=== PATIENT | male | born 1985 | race Caucasian/White ===

== ENCOUNTER 2016-10-04 10:30 | Emergency (ER) | payer OTHER ==
[2016-10-04 11:26] VITALS: BP 126/79
== END 2016-10-04 17:56 ==
LOC: ED 10:30
DX: Z53.21 Procedure and treatment not carried out due to patient leaving prior to being seen by health care provider (principal)

== ENCOUNTER 2017-05-16 11:44 | Emergency (ER) | payer SELFPAY ==
[2017-05-16 11:54] VITALS: BP 129/86
--- NOTE | 2017-05-16 13:29 | Emergency Department Report ---
- General Chief Complaint: Upper Respiratory Infection Stated Complaint: ALLERGIES Time Seen by Provider: 05/16/17 13:16 Source: patient Mode of arrival: Ambulatory Limitations: No Limitations - History of Present Illness Initial Comments: 31-year-old male with past medical history headaches presents to the hospital complaining of allergy symptoms and diarrhea. On encounter is currently high. Patient's had an itchy scratchy throat, nasal congestion, postnasal drip, and sneezing episodes. Taking Claritin without improvement. Patient had diarrhea for 2 weeks secondary to food poisoning. Symptoms improved but reoccurred one week ago. He's having about 10-15 loose stools per day. No blood, mucus, recent travel, sick contacts reported. Patient reports that he "felt hot" 2 days ago but did not check his temperature to confirm fever. Abdominal cramping intermittently and it occurs prior to bowel movements only. - Related Data Previous Rx's Medication Instructions Recorded Last Taken Type Methocarbamol [Robaxin] 750 mg PO Q8H PRN #21 tablet 03/04/14 Unknown Rx traMADol [Ultram 50 MG tab] 50 mg PO Q6HR PRN #30 tablet 03/04/14 Unknown Rx Ciprofloxacin HCl [Ciprofloxacin 500 mg PO Q12H #10 tab 05/16/17 Unknown Rx TAB] Allergies Allergy/AdvReac Type Severity Reaction Status Date / Time No Known Allergies Allergy Unverified 06/14/15 08:36 ED Review of Systems ROS: Stated complaint: ALLERGIES Other details as noted in HPI Comment: All other systems reviewed and negative ED Past Medical Hx - Past Medical History Hx Headaches / Migraines: Yes - Surgical History Past Surgical History?: No - Social History Smoking Status: Never Smoker Substance Use Type: None - Medications Home Medications: Home Medications Medication Instructions Recorded Confirmed Last Taken Type Methocarbamol [Robaxin] 750 mg PO Q8H PRN #21 tablet 03/04/14 Unknown Rx traMADol [Ultram 50 MG tab] 50 mg PO Q6HR PRN #30 tablet 03/04/14 Unknown Rx Ciprofloxacin HCl [Ciprofloxacin 500 mg PO Q12H #10 tab 05/16/17 Unknown Rx TAB] ED Physical Exam - General Limitations: No Limitations - Other Other exam information: General: No limitations, patient is alert in no acute distress Head exam: Atraumatic, normocephalic Eyes exam: Normal appearance ENT: Moist mucous membrane, nasal congestion Neck exam: Normal inspection, full range of motion, no meningismus nontender Respiratory exam: Clear to auscultation bilateral, no wheezes, rales, crackles Cardiovascular: Normal rate and rhythm, normal heart sounds Abdomen: Soft, nondistended, and nontender, with normal bowel sounds, no rebound, or guarding Extremity: Full range of motion normal inspection no deformity Back: Normal Inspection, full range of motion, no tenderness Neurologic: Alert, oriented x3, cranial nerves intact, no motor or sensory deficit Psychiatric: normal affect, normal mood Skin: Warm, dry, intact ED Course Vital Signs 05/16/17 11:50 Temperature 98.5 F Pulse Rate 87 Respiratory 16 Rate Blood Pressure 129/86 O2 Sat by Pulse 99 Oximetry ED Medical Decision Making - Medical Decision Making patient is afebrile and nontoxic without abdominal tenderness. Given recurrent diarrhea patient will be prescribed Cipro for 5 days Encouraged to try other [id number] allergy medication including those that contain decongestants Follow-up commended - Differential Diagnosis season allergies, URI, diarrhea, infectious diarrhea, colitis Critical Care Time: No Critical care attestation.: If time is entered above; I have spent that time in minutes in the direct care of this critically ill patient, excluding procedure time. ED Disposition Clinical Impression: Seasonal allergies, Acute diarrhea Disposition: - TO HOME OR SELFCARE Is pt being admited?: No Does the pt Need Aspirin: No Condition: Stable Instructions: Acute Diarrhea (ED), Allergies (ED) Additional Instructions: Take [id number] medication for your allergy symptoms. Take the antibiotics as prescribed. Continue to drink plenty of fluids. Return if symptoms worsen as indicated by your discharge structures. Follow-up with you primary care doctor for further management. Prescriptions: Ciprofloxacin HCl [Ciprofloxacin TAB] 500 mg PO Q12H #10 tab Referrals: PRIMARY CARE [Primary Care Provider] - 3-5 Days [facility] [Provider Group] - 3-5 Days Time of Disposition: 13:30
== END 2017-05-16 13:35 | disposition home or self-care (01) ==
LOC: ED 11:44
DX: J30.2 Other seasonal allergic rhinitis (principal); G43.909 Migraine, unspecified, not intractable, without status migrainosus
CPT/HCPCS: 99282

== ENCOUNTER 2018-09-25 18:08 | Emergency (ER) | payer SELFPAY ==
[2018-09-25 18:18] VITALS: BP 112/82
--- NOTE | 2018-09-25 18:21 | Emergency Department Report ---
ED Back Pain/Injury HPI - General Chief Complaint: Back Pain/Injury Stated Complaint: LOWER BACK PAIN Time Seen by Provider: 09/25/18 18:17 Source: patient Limitations: No Limitations - History of Present Illness Initial Comments: Pt is a 32 yo male who presents to the ED with right sided lower back pain that began two days ago. he states he was lifting some heavy boxes at work and bending over frequently. he denies any fall or injury. He denies any numbness, weakness, or bowel/bladder incontinence. PMHx migraines. no allergies to meds. - Related Data Previous Rx's Medication Instructions Recorded Last Taken Type methOCARBAMOL [Robaxin] 750 mg PO Q8H PRN #21 tablet 03/04/14 Unknown Rx traMADol [Ultram 50 MG tab] 50 mg PO Q6HR PRN #30 tablet 03/04/14 Unknown Rx Ciprofloxacin HCl [Ciprofloxacin 500 mg PO Q12H #10 tab 05/16/17 Unknown Rx TAB] Cyclobenzaprine [Flexeril] 10 mg PO QHS PRN #10 tablet 09/25/18 Unknown Rx Naproxen [Naprosyn] 500 mg PO BID PRN #14 tablet 09/25/18 Unknown Rx Allergies Allergy/AdvReac Type Severity Reaction Status Date / Time No Known Allergies Allergy Verified 09/25/18 18:12 ED Review of Systems ROS: Stated complaint: LOWER BACK PAIN Other details as noted in HPI Comment: All other systems reviewed and negative ED Past Medical Hx - Past Medical History Hx Headaches / Migraines: Yes - Social History Smoking Status: Never Smoker Substance Use Type: None - Medications Home Medications: Home Medications Medication Instructions Recorded Confirmed Last Taken Type methOCARBAMOL [Robaxin] 750 mg PO Q8H PRN #21 tablet 03/04/14 Unknown Rx traMADol [Ultram 50 MG tab] 50 mg PO Q6HR PRN #30 tablet 03/04/14 Unknown Rx Ciprofloxacin HCl [Ciprofloxacin 500 mg PO Q12H #10 tab 05/16/17 Unknown Rx TAB] Cyclobenzaprine [Flexeril] 10 mg PO QHS PRN #10 tablet 09/25/18 Unknown Rx Naproxen [Naprosyn] 500 mg PO BID PRN #14 tablet 09/25/18 Unknown Rx ED Physical Exam - General Limitations: No Limitations General appearance: alert, in no apparent distress - Head Head exam: Present: atraumatic, normocephalic - Eye Eye exam: Present: normal appearance - ENT ENT exam: Present: mucous membranes moist - Neck Neck exam: Present: normal inspection, full ROM. Absent: tenderness - Respiratory Respiratory exam: Present: normal lung sounds bilaterally. Absent: respiratory distress, wheezes, rales, rhonchi, stridor, chest wall tenderness, accessory muscle use, decreased breath sounds, prolonged expiratory - Cardiovascular Cardiovascular Exam: Present: regular rate, normal rhythm, normal heart sounds. Absent: systolic murmur, diastolic murmur, rubs, gallop - Back Exam Back exam: Present: normal inspection, full ROM, paraspinal tenderness (right sided lumbar paraspinal muscular TTP, no midline C-spine, T-spine, or L-spine tenderness, no step offs, no deformities). Absent: vertebral tenderness - Neurological Exam Neurological exam: Present: alert, oriented X3, CN II-XII intact, normal gait. Absent: motor sensory deficit - Psychiatric Psychiatric exam: Present: normal affect, normal mood - Skin Skin exam: Present: warm, dry, intact ED Course Vital Signs 09/25/18 18:16 Temperature 98.8 F Pulse Rate 93 H Respiratory 18 Rate Blood Pressure 112/82 O2 Sat by Pulse 99 Oximetry ED Medical Decision Making - Medical Decision Making Pt is a 32 yo male who presents to the ED with right sided lower back pain that began two days ago. he states he was lifting some heavy boxes at work and bending over frequently. he denies any fall or injury. He denies any numbness, weakness, or bowel/bladder incontinence. PMHx migraines. no allergies to meds. vitals are normal. on exam: right sided lumbar paraspinal muscular TTP, no midline C-spine, T-spine, or L-spine tenderness, no step offs, no deformities, no focal neuro deficits. pt history and examination consistent with low back strain. pt prescription for anti-inflammatory and muscle relaxer. advised to please take medication as prescribed as needed. do not drive or operate heavy machinery while taking muscle relaxer. may use ice, heating pad, rest, epsom salt bath. follow up with a primary care doctor in the next 2-3 days. return to the emergency room for any new or worsening symptoms. Critical care attestation.: If time is entered above; I have spent that time in minutes in the direct care of this critically ill patient, excluding procedure time. ED Disposition Clinical Impression: Low back strain Qualifiers: Encounter type: initial encounter Qualified Code(s): S39.012A - Strain of muscle, fascia and tendon of lower back, initial encounter Disposition: TO HOME OR SELFCARE Is pt being admited?: No Does the pt Need Aspirin: No Condition: Stable Instructions: Muscle Strain (ED) Additional Instructions: please take medication as prescribed as needed. do not drive or operate heavy machinery while taking muscle relaxer. may use ice, heating pad, rest, epsom salt bath. follow up with a primary care doctor in the next 2-3 days. return to the emergency room for any new or worsening symptoms. Prescriptions: Cyclobenzaprine [Flexeril] 10 mg PO QHS PRN #10 tablet PRN Reason: Muscle Spasm Naproxen [Naprosyn] 500 mg PO BID PRN #14 tablet PRN Reason: pain Referrals: [facility] [Provider Group] - 2-3 Days [facility] [Outside] - 2-3 Days [facility] [Outside] - 2-3 Days Forms: Work/School Release Form(ED) Time of Disposition: 18:26 Print Language: THAI
== END 2018-09-25 18:54 | disposition home or self-care (01) ==
LOC: ED 18:08
DX: S39.012A Strain of muscle, fascia and tendon of lower back, initial encounter (principal); G43.909 Migraine, unspecified, not intractable, without status migrainosus; Z79.899 Other long term (current) drug therapy; X50.0XXA Overexertion from strenuous movement or load, initial encounter; Y93.89 Activity, other specified; Y92.89 Other specified places as the place of occurrence of the external cause; Y99.0 Civilian activity done for income or pay

== ENCOUNTER 2020-06-02 09:05 | Emergency (ER) | payer SELFPAY ==
--- NOTE | 2020-06-02 09:27 | Event Note ---
ED Screening Note Date of service: 06/02/20 Time: 09:26 ED Screening Note: Patient complains of epigastric/right upper quadrant pain x 3 days + Nausea/vomiting/diarrhea Denies hematemesis/coffee-ground emesis or hematochezia/melena No history of abdominal surgeries This initial assessment/diagnostic orders/clinical plan/treatment(s) is/are subject to change based on patients health status, clinical progression and re- assessment by fellow clinical providers in the ED. Further treatment and workup at subsequent clinical providers discretion. Patient/guardian urged not to elope from the ED as their condition may be serious if not clinically assessed and managed. Initial orders include: Lab
--- NOTE | 2020-06-02 10:08 | Ultrasound Report ---
ULTRASOUND ABDOMEN, LIMITED (RIGHT UPPER QUADRANT) INDICATION: acute pain. COMPARISON: None available. FINDINGS: Pancreas: Visualized portion shows no significant abnormality. Liver: Mild steatosis. Gallbladder: There is minimal sludge in the gallbladder. There is a 4 mm polyp. No gallstones are arielle ntified. Bile ducts: Normal. Common Bile Duct measures 3-4 mm. Free fluid: None. Additional Findings: None. IMPRESSION: 1. Mild steatosis. 2. Tiny polyp and minimal sludge in the gallbladder. Signer Name: Bar Carrasquillo MD Signed: 06/02/2020 10:03 AM Workstation Name: [id number]
[2020-06-02 10:31] LABS: Basophils % (Auto) 0.2 % (0.0-1.8); Eosinophils % (Auto) 0.1 % (0.0-4.3); Hematocrit 46.3 % (35.5-45.6); Hemoglobin 15.5 gm/dl (11.8-15.2); Lymphocytes # (Auto) 0.8 K/mm3 (1.2-5.4); Lymphocytes % (Auto) 8.3 % (13.4-35.0); Mean Corpuscular HGB Conc 34 % (32-34); Mean Corpuscular Volume 95 fl (84-94); Monocytes % (Auto) 9.5 % (0.0-7.3); Red Blood Count 4.88 M/mm3 (3.65-5.03); Red Cell Distribution Width 14.1 % (13.2-15.2)
[2020-06-02 10:32] LABS: Platelet Count 169 K/mm3 (140-440)
[2020-06-02 10:48] LABS: Alanine Aminotransferase 27 units/L (7-56); Albumin 4.6 g/dL (3.9-5); BUN/Creatinine Ratio 9; Blood Urea Nitrogen 11 mg/dL (9-20); Calcium 9.7 mg/dL (8.4-10.2); Hemolysis Index 7
[2020-06-02] MEDS ORDERED: ONDANSETRON 4 MG ODT TAB ONE (15:48)
[2020-06-02] MEDS ORDERED: ONDANSETRON 4 MG ODT TAB PO ONE (15:50)
[2020-06-02 18:29] LABS: Bilirubin,Urine SM (Negative); Blood,Urine SM (Negative); Color,Urine Amber (Yellow)
[2020-06-02 18:57] LABS: Ictotest,Urine Negative (Negative)
--- NOTE | 2020-06-02 20:04 | Emergency Department Report ---
ED Abdominal Pain HPI - General Chief Complaint: Abdominal Pain Stated Complaint: ABD PAIN PUI?: No Time Seen by Provider: 06/02/20 19:30 Source: patient, EMS Mode of arrival: Ambulatory Limitations: No Limitations - History of Present Illness Initial Comments: Patient is a 34-year-old male who presents emergency room with complaints of abdominal pain, nausea, vomiting, diarrhea, chills. Patient states his symptoms started 2 days ago. Patient dates symptoms are worsening. Patient states he believes that his symptoms were caused by eating bad food from [employer] on Sunday night. Patient states the abdominal pain is periumbilical and is worsening. Patient states the pain is a 6 out of 10. Patient states the pain is better with rest and worse with palpation and movement and vomiting. Patient denies blood in the vomitus. Patient denies blood in the stool. Patient states he is not been able to hold anything down for 2 days. Patient denies recent travel. Patient denies recent international travel. Patient denies exposure to the novel coronavirus. Patient denies sick contacts. Patient denies loss of smell. Patient denies cough. Patient denies coming in contact with anybody with symptoms of the novel coronavirus. MD Complaint: abdominal pain -: Sudden Location: periumbilical Radiation: none Migration to: no migration Severity scale (0 -10): 6 Quality: cramping Consistency: constant Improves With: rest Worsens With: eating, vomiting, movement Context: possible food poisoning Associated Symptoms: nausea, vomiting, diarrhea, chills. denies: fever, constipation, dysuria, hematemesis, hematochezia, melena, hematuria, syncope - Related Data Previous Rx's Medication Instructions Recorded Last Taken Type Amoxicillin/Potassium Clav 1 each PO BID 20 Days #10 tablet 06/02/20 Unknown Rx [Augmentin 875-125 Tablet] Ondansetron [Zofran Odt] 4 mg PO Q6HR PRN #20 tab.rapdis 06/02/20 Unknown Rx Allergies Allergy/AdvReac Type Severity Reaction Status Date / Time No Known Allergies Allergy Verified 06/02/20 09:16 ED Review of Systems ROS: Stated complaint: ABD PAIN Other details as noted in HPI Constitutional: denies: chills, fever Eyes: denies: eye pain, eye discharge, vision change ENT: denies: ear pain, throat pain Respiratory: denies: cough, shortness of breath, wheezing Cardiovascular: denies: chest pain, palpitations Endocrine: no symptoms reported Gastrointestinal: as per HPI, abdominal pain, nausea, vomiting, diarrhea. denies: constipation, hematemesis, melena, hematochezia Genitourinary: denies: urgency, dysuria Musculoskeletal: denies: back pain, joint swelling, arthralgia Skin: denies: rash, lesions Neurological: denies: headache, weakness, paresthesias Psychiatric: denies: anxiety, depression Hematological/Lymphatic: denies: easy bleeding, easy bruising ED Past Medical Hx - Past Medical History Previous Medical History?: Yes Hx Headaches / Migraines: Yes - Surgical History Past Surgical History?: No - Family History Family history: no significant - Social History Smoking Status: Never Smoker Substance Use Type: None - Medications Home Medications: Home Medications Medication Instructions Recorded Confirmed Last Taken Type Amoxicillin/Potassium Clav 1 each PO BID 20 Days #10 tablet 06/02/20 Unknown Rx [Augmentin 875-125 Tablet] Ondansetron [Zofran Odt] 4 mg PO Q6HR PRN #20 tab.rapdis 06/02/20 Unknown Rx ED Physical Exam - General Limitations: No Limitations General appearance: alert, in no apparent distress - Head Head exam: Present: atraumatic, normocephalic - Eye Eye exam: Present: normal appearance - ENT ENT exam: Present: mucous membranes moist - Neck Neck exam: Present: normal inspection - Respiratory Respiratory exam: Present: normal lung sounds bilaterally. Absent: respiratory distress - Cardiovascular Cardiovascular Exam: Present: regular rate, normal rhythm. Absent: systolic murmur, diastolic murmur, rubs, gallop - GI/Abdominal GI/Abdominal exam: Present: soft, tenderness (Periumbilical tenderness to palpation.), normal bowel sounds - Rectal Rectal exam: Present: deferred - Extremities Exam Extremities exam: Present: normal inspection - Back Exam Back exam: Present: normal inspection - Neurological Exam Neurological exam: Present: alert, oriented X3 - Psychiatric Psychiatric exam: Present: normal affect, normal mood - Skin Skin exam: Present: warm, dry, intact, normal color. Absent: rash ED Course Vital Signs 06/02/20 06/02/20 06/02/20 09:13 19:50 19:53 Temperature 99 F 98.1 F Pulse Rate 115 H 106 H Respiratory 20 18 20 Rate Blood Pressure 131/66 Blood Pressure 103/65 [Right] O2 Sat by Pulse 96 99 Oximetry 06/02/20 06/02/20 20:00 21:00 Temperature Pulse Rate 97 H 106 H Respiratory 20 24 Rate Blood Pressure 105/72 108/77 Blood Pressure [Right] O2 Sat by Pulse 94 Oximetry - Reevaluation(s) Reevaluation #1: Patient states he is feeling much better. 06/02/20 23:04 Reevaluation #2: I discussed all results and clinical findings with patient. I discussed plan of care with patient. Patient agrees with plan of care. Patient is stable for discharge. Patient will be discharged home. Patient given discharge instructions. Patient voiced understanding of discharge instructions. 06/02/20 23:15 - Consultations Consultation #1: I discussed the case with Dr. Orosco, vascular surgery. Dr. Orosco looked at the CT scan and states that there is no vascular occlusion or ischemia of the bowels. Patient is clear from a vascular standpoint But recommends a GI consult. 06/02/20 23:00 ED Medical Decision Making - Lab Data Result diagrams: 06/02/20 09:53 06/02/20 09:53 - Radiology Data Radiology results: report reviewed ULTRASOUND ABDOMEN, LIMITED (RIGHT UPPER QUADRANT) INDICATION: acute pain. COMPARISON: None available. FINDINGS: Pancreas: Visualized portion shows no significant abnormality. Liver: Mild steatosis. Gallbladder: There is minimal sludge in the gallbladder. There is a 4 mm polyp. No gallstones are identified. Bile ducts: Normal. Common Bile Duct measures 3-4 mm. Free fluid: None. Additional Findings: None. IMPRESSION: 1. Mild steatosis. 2. Tiny polyp and minimal sludge in the gallbladder. CT ABDOMEN AND PELVIS WITH IV CONTRAST INDICATION: Mid abdominal pain. COMPARISON: None available. TECHNIQUE: Axial CT images were obtained through the abdomen and pelvis after 100 mL IV contrast. All CT scans at this location are performed using CT dose reduction for ALARA by means of automated exposure control. The exam is limited secondary to motion artifact. FINDINGS -- ABDOMEN: Lung Bases: Patchy airspace consolidation within the left lower lung. Liver: Normal. Gallbladder: Normal. Bile Ducts: Normal. Pancreas: Normal. Spleen: Normal. Adrenals: Normal. Right Kidney and Proximal Ureter: Normal. Left Kidney and Proximal Ureter: Normal. Stomach and Bowel: Normal. Lymph Nodes: No significant adenopathy. Aorta: No significant abnormality. IVC: Normal. Additional Findings: None. FINDINGS -- PELVIS: Urinary Bladder and Distal Ureters: Normal. Reproductive Organs: No acute abnormality. Appendix: Mildly edematous. Bowel: Grossly abnormal distal small bowel with extensive transmural thickening and edema. There is abnormal thickening and edema involving the large bowel mucosa especially the ascending colon and transverse colon. Much of the distal descending colon, sigmoid colon and rectum are collapsed but also appear abnormally thickened. Free Fluid: None. Lymph Nodes: No significant adenopathy. Additional Findings: None. Skeletal System: No acute abnormality. IMPRESSION: 1. Limited exam secondary to motion artifact. There is extensive abnormality of the small and large bowel with extensive transmural thickening and prominence of the draining mesenteric vessels. Due to respiratory motion artifact, a focal area of transition was not well identified however the appearance of the distal small bowel and large bowel appear most consistent with widespread enteritis/colitis, possibly infectious however an underlying inflammatory bowel disease could have a similar appearance. Vasculitis/widespread ischemia could also have a similar appearance but there does not appear to be significant arterial stenosis/occlusion. 2. Mildly prominent appendix, nonspecific as there does not appear to be significant surrounding mesenteric edema in this region - Medical Decision Making Patient is a 34-year-old male that presents emergency room with complaints of abdominal pain, nausea, vomiting, diarrhea. Patient states it started after eating bad food for [employer]. Patient had labs done which were essentially unremarkable except for signs of dehydration. Patient had a CT scan of the abdomen which showed widespread colitis and enteritis and a left lower lobe pneumonia. Patient does not have any signs of symptoms of pneumonia. Patient given Zofran and saline in the ER and his pain and nausea resolved. Patient had a bowel movement in the ER. Patient tolerated p.o. challenge. Patient patient had findings concerning for vascular compromise on CT scan per the radiologist and I discussed with vascular surgery and vascular surgery stated there were no vascular compromise. Patient was cleared from a vascular standpoint. Patient was pain-free and asymptomatic prior to discharge. Also on the CT scan the radiologist mentioned a left lower lobe pneumonia. Patient will be treated for pneumonia and colitis with Augmentin. Patient given Zofran as needed. Patient stable for discharge. Patient discharged home. Patient given referrals for general surgery for the biliary sludge on ultrasound and GI for the findings on CT scan. - Differential Diagnosis Colitis, small bowel obstruction, n/v/d, food toxicity, abdominal pain Critical care attestation.: If time is entered above; I have spent that time in minutes in the direct care of this critically ill patient, excluding procedure time. ED Disposition Clinical Impression: RINCON (nonalcoholic steatohepatitis), Gastroenteritis, Colitis, Nausea vomiting and diarrhea, Biliary sludge Abdominal pain Qualifiers: Abdominal location: periumbilical Qualified Code(s): R10.33 - Periumbilical pain Pneumonia Qualifiers: Pneumonia type: due to unspecified organism Laterality: left Lung location: lower lobe of lung Qualified Code(s): J18.9 - Pneumonia, unspecified organism Nausea & vomiting Qualifiers: Vomiting type: unspecified Vomiting Intractability: non-intractable Qualified Code(s): R11.2 - Nausea with vomiting, unspecified Disposition: DC-01 TO HOME OR SELFCARE Is pt being admited?: No Does the pt Need Aspirin: No Condition: Stable Instructions: Bacterial Pneumonia (ED), Viral Gastroenteritis, Adult, [id number], Community-Acquired Pneumonia, Adult, Nausea, Adult, [id number], Nausea and Vomiting, Adult, Food Choices to Help Relieve Diarrhea, Adult Additional Instructions: Patient to follow-up with primary care in 2 to 3 days. Patient to follow-up with gastroenterology and general surgery in 2 to 3 days. Patient to rest. Patient to increase water. Patient to avoid strenuous exercise or heavy lifting until cleared by primary care. Patient eat a brat diet. Patient to take Tylenol or ibuprofen as needed for pain. Patient to take meds as directed. Patient to return to the ER if condition worsens, changes or new symptoms arise. Prescriptions: Amoxicillin/Potassium Clav [Augmentin 875-125 Tablet] 1 each PO BID 20 Days #10 tablet Ondansetron [Zofran Odt] 4 mg PO Q6HR PRN #20 tab.rapdis PRN Reason: Nausea And Vomiting Referrals: PRIMARY CARE,MD [Primary Care Provider] - 2-3 Days HALIE BURCH MD [Staff Physician] - 2-3 Days KEREN GRIFFIN DO [Staff Physician] - 2-3 Days Time of Disposition: 23:15
[2020-06-02] MEDS ORDERED: SODIUM CHLORIDE 0.9% 1000 ML 1,000 ML IV ONE (20:34)
[2020-06-02] MEDS ORDERED: ONDANSETRON 4 MG/2 ML INJ IV ONE (20:34)
--- NOTE | 2020-06-02 20:59 | Cat Scan Report ---
CT ABDOMEN AND PELVIS WITH IV CONTRAST INDICATION: Mid abdominal pain. COMPARISON: None available. TECHNIQUE: Axial CT images were obtained through the abdomen and pelvis after 100 mL IV contrast. All CT scans a t this location are performed using CT dose reduction for ALARA by means of automated exposure contro l. The exam is limited secondary to motion artifact. FINDINGS -- ABDOMEN: Lung Bases: Patchy airspace consolidation within the left lower lung. Liver: Normal. Gallbladder: Normal. Bile Ducts: Normal. Pancreas: Normal. Spleen: Normal. Adrenals: Normal. Right Kidney and Proximal Ureter: Normal. Left Kidney and Proximal Ureter: Normal. Stomach and Bowel: Normal. Lymph Nodes: No significant adenopathy. Aorta: No significant abnormality. IVC: Normal. Additional Findings: None. FINDINGS -- PELVIS: Urinary Bladder and Distal Ureters: Normal. Reproductive Organs: No acute abnormality. Appendix: Mildly edematous. Bowel: Grossly abnormal distal small bowel with extensive transmural thi ckening and edema. There is abnormal thickening and edema involving the large bowel mucosa especially the ascending colon and transverse colon. Much of the distal descending colon, sigmoid colon and rec dallin are collapsed but also appear abnormally thickened. Free Fluid: None. Lymph Nodes: No significant adenopathy. Additional Findings: None. Skeletal System: No acute abnormality. IMPRESSION: 1. Limited exam secondary to motion artifact. There is extensive abnormality of the small and large b owel with extensive transmural thickening and prominence of the draining mesenteric vessels. Due to r espiratory motion artifact, a focal area of transition was not well identified however the appearance of the distal small bowel and large bowel appear most consistent with widespread enteritis/colitis, possibly infectious however an underlying inflammatory bowel disease could have a similar appearance. Vasculitis/widespread ischemia could also have a similar appearance but there does not appear to be significant arterial stenosis/occlusion. 2. Mildly prominent appendix, nonspecific as there does not appear to be significant surrounding mese nteric edema in this region Signer Name: Yousif Zambrano MD Signed: 06/02/2020 8:55 PM Workstation Name: [email or web address]
[2020-06-02 23:35] VITALS: BP 116/73
== END 2020-06-02 23:20 | disposition home or self-care (01) ==
LOC: ED 09:05
DX: K75.81 Nonalcoholic steatohepatitis (NASH) (principal); K52.9 Noninfective gastroenteritis and colitis, unspecified; J18.9 Pneumonia, unspecified organism; G43.909 Migraine, unspecified, not intractable, without status migrainosus; Z79.899 Other long term (current) drug therapy
CPT/HCPCS: 36415; 74177; 76705; 80053; 81001; 83690; 85025; 96361; 96374; 99284; J2405; J7030; Q9967; Q0162